=== PATIENT | female | born 1980 | race Caucasian/White ===

== ENCOUNTER → 2018-05-28 | Outpatient (CLI) | payer SELFPAY ==
[2018-05-28 12:33] LABS: BASOPHILS % (AUTO) 0 % (0-10); EOSINOPHILS # (AUTO) 0.2 10^3/uL (0.0-0.3); EOSINOPHILS % (AUTO) 2 % (0-10); HEMATOCRIT 40 % (35-52); HEMOGLOBIN 13.8 G/DL (11.5-16.0); LYMPHOCYTES # (AUTO) 0.9 X 10^3 (1.0-4.0); LYMPHOCYTES % (AUTO) 10 % (12-44); MEAN CORPUSCULAR HEMOGLOBIN 31 PG (25-34); MEAN CORPUSCULAR HGB CONC 34 G/DL (32-36); MEAN CORPUSCULAR VOLUME 91 FL (80-99); MEAN PLATELET VOLUME 9.7 FL (7.4-10.4); MONOCYTES # (AUTO) 0.7 X 10^3 (0.0-1.0); MONOCYTES % (AUTO) 7 % (0-12); NEUTROPHILS # (AUTO) 7.8 X 10^3 (1.8-7.8); NEUTROPHILS % (AUTO) 81 % (42-75); PLATELET COUNT 304 10^3/uL (130-400); RED BLOOD COUNT 4.43 10^6/uL (4.35-5.85); RED CELL DISTRIBUTION WIDTH 12.3 % (10.0-14.5); WHITE BLOOD COUNT 9.7 10^3/uL (4.3-11.0)
[2018-05-28 12:53] LABS: ALANINE AMINOTRANSFERASE 20 U/L (0-55); ALBUMIN 4.4 GM/DL (3.2-4.5); ALKALINE PHOSPHATASE 66 U/L (40-136); BILIRUBIN,TOTAL 0.8 MG/DL (0.1-1.0); BUN/CREATININE RATIO 10; CARBON DIOXIDE 20 MMOL/L (21-32); CHLORIDE 104 MMOL/L (98-107); CREATININE SERUM 0.62 MG/DL (0.60-1.30); GFR ESTIMATED > 60; GLUCOSE 105 MG/DL (70-105); POTASSIUM 3.9 MMOL/L (3.6-5.0); SODIUM 134 MMOL/L (135-145); TOTAL PROTEIN 7.4 GM/DL (6.4-8.2)
== END ==
LOC: LAB 11:56
PROVIDERS: ATTEND Nurse Practitioner Family
DX: G44.209 Tension-type headache, unspecified, not intractable (principal); R50.9 Fever, unspecified; F41.1 Generalized anxiety disorder
CPT/HCPCS: 36415; 80053; 84443; 85025

== ENCOUNTER 2022-06-20 02:57 | Emergency (ER) | payer SELFPAY ==
[2022-06-20 03:25] VITALS: BP 98/81
--- NOTE | 2022-06-20 03:33 | ED General ---
General Chief Complaint: Allergic Reaction Stated Complaint: ALLERGIC RXN,HANDS &FEET SWOLLEN,PT STS PASSED OUT Nursing Triage Note: PT PRESENTS AND REPORTS SHE WOKE UP AROUND 0230 AND WAS ITCHING ALL OVER. HIVES PRESENT TO ARMS, LEGS, FEET, HANDS, BACK, AND TRUNK. PT REPORTS TONGUE FEELS LARGER THAN NORMAL. DENIES ISSUE SWALLOWING. PT REPORTS SHE WAS WALKING AND THEN WOKE UP ON THE FLOOR SO SHE BELIEVES SHE HAD LOC. PT REPORTS NAUSEA History of Present Illness Date Seen by Provider: Jun 20, 2022 Time Seen by Provider: 03:30 Initial Comments 41-year-old female is here with complaints of an allergic reaction which began around 2:30 AM today morning. Patient woke up itching all over and noticed that she had hives to her arms legs feet hands and trunk. Patient also complains of tingling and mild swelling in her tongue. She stated she went to the bathroom and became lightheaded and fell on the floor for a second to balance her self. Patient has associated nausea but no vomiting. Patient is unsure trigger for her allergic reaction. Denies fever, chest pain, palpitations, shortness of breath, abdominal pain. Allergies and Home Medications Allergies Coded Allergies: No Known Drug Allergies (Unverified , 06/20/22) Patient Home Medication List Home Medication List Reviewed: Yes Review of Systems Review of Systems Constitutional: no symptoms reported EENTM: no symptoms reported Respiratory: no symptoms reported Cardiovascular: no symptoms reported Gastrointestinal: nausea Genitourinary: no symptoms reported Musculoskeletal: no symptoms reported Skin: pruritus, rash Psychiatric/Neurological: No Symptoms Reported Hematologic/Lymphatic: No Symptoms Reported Immunological/Allergic: no symptoms reported Past Yyrggxa-Cxeskl-Rfyoeo Hx Patient Social History Tobacco Use?: No Substance use?: No Alcohol Use?: No Immunizations Up To Date Influenza Vaccine Up-to-Date: No; Not Current First/Initial COVID19 Vaccinat: UNKNOWN DATE Second COVID19 Vaccination Simeon: UNKNOWN DATE COVID19 Vaccine Stepdown Nurse: ROBERT Physical Exam Vital Signs Vital Signs - First Documented 06/20/22 03:25 Temp 35.8 Pulse 82 Resp 18 B/P (MAP) 98/81 (87) Pulse Ox 97 O2 Delivery Room Air Capillary Refill : Height, Weight, BMI Height: '" Weight: lbs. oz. kg; BMI Method: General Appearance: No Apparent Distress, WD/WN HEENT: PERRL/EOMI, Normal ENT Inspection, Pharynx Normal Neck: Full Range of Motion, Normal Inspection, Non Tender, Supple Respiratory: Chest Non Tender, Lungs Clear, Normal Breath Sounds Cardiovascular: Regular Rate, Rhythm Gastrointestinal: Non Tender, Soft Neurologic/Psychiatric: Alert, Oriented x3, No Motor/Sensory Deficits Skin: Normal Color, Rash (Hives on extremities and trunk) Lymphatic: No Adenopathy Progress/Results/Core Measures Suspected Sepsis SIRS Temperature: Pulse: 82 Respiratory Rate: 18 Blood Pressure 98 /81 Mean: 87 Results/Orders My Orders Orders - BRENDAN MATIAS MD Methylprednisolone Sod Succ (Solu-Medrol (06/20/22 03:57) Ns Iv 1000 Ml (Sodium Chloride 0.9%) (06/20/22 03:59) Ed Iv/Invasive Line Start (06/20/22 03:59) Famotidine Tablet (Pepcid Tablet) (06/20/22 03:59) Vital Signs/I&O 06/20/22 03:25 Temp 35.8 Pulse 82 Resp 18 B/P (MAP) 98/81 (87) Pulse Ox 97 O2 Delivery Room Air Capillary Refill : Blood Pressure Mean: 87 Progress Note : Progress Note 1. ALLERGIC REACTION : UNKNOWN TRIGGER: - Solumedrol 125mg iv/ Pepcid/ Benadryl/ NS IVF in ER - Prescriotions for dual pack EpiPen/prednisone for 4 days -Follow-up with PCP within 3 to 5 days -Advised patient to see PCP for dermatology referral for skin allergy testing -The patient was seen in the ED, and treated appropriately to presentation at a specific point in time. Patient is informed that there is a possibility that disease and illness can evolve and change in acuity rapidly or slowly after patient is discharged from the ER. Precautionary advice given to the patient for immediate return to ER if symptoms worsen or do not resolve, and to seek emergency care sooner rather than later. Pt also advised on the importance of PCP follow up and compliance with management and follow up plan with PCP and/or specialist, as this is part of the management plan. Pt verbally expressed understanding. Departure Impression Primary Impression: Allergic reaction Qualified Codes: T78.40XA - Allergy, unspecified, initial encounter Disposition: 01 HOME, SELF-CARE Condition: Improved Departure-Patient Inst. Referrals: HIRO XAVIER APRN (PCP/Family) Primary Care Physician Patient Instructions: Allergy Skin Testing, Allergic Reaction ED Add. Discharge Instructions: - Prescriotions for dual pack EpiPen/prednisone for 4 days -Follow-up with PCP within 3 to 5 days -Return to ER if symptoms worsen -Advised patient to see PCP for dermatology referral for skin allergy testing All discharge instructions reviewed with patient and/or family. Voiced understanding. Scripts Prednisone (Prednisone) 20 Mg Tab 40 MG PO DAILY for 4 Days, #4 TAB Prov: BRENDAN MATIAS MD 06/20/22 Epinephrine (Epipen 2-Wilman) 0.3 Mg/0.3 Ml Auto.injct 0.3 MG IJ ONCE for Shortness of Breath, #1 ML Prov: BRENDAN MATIAS MD 06/20/22 BRENDAN MATIAS MD Jun 20, 2022 03:33
[2022-06-20] MEDS ORDERED: methylPREDNISolone 125 MG (Solu-MEDROL) VIAL IV STA (03:57)
[2022-06-20] MEDS ORDERED: NS IV 1000 ML 1,000 ML IV STA (03:59)
[2022-06-20] MEDS ORDERED: FAMOTIDINE 20 MG (PEPCID) TABLET PO STA (03:59)
[2022-06-20] MEDS ORDERED: EPIN0.3P3 IJ (06:01)
[2022-06-20] MEDS ORDERED: PRD20T PO (06:01)
== END 2022-06-20 06:23 | disposition home or self-care (01) ==
LOC: EDUNIT# 02:57 → ER 03:00
DX: L50.0 Allergic urticaria (principal); R11.0 Nausea
CPT/HCPCS: 99283

== ENCOUNTER 2022-06-28 22:10 | Emergency (ER) | payer SELFPAY ==
[~2022-06-28] VITALS: Ht 162.6 cm; Wt 93.4 kg
[~2022-06-28 22:10] MED LIST: EPIN0.3P3 IJ; PRD20T PO
[2022-06-28] MEDS ORDERED: methylPREDNISolone 125 MG (Solu-MEDROL) VIAL IVP ONE (22:30)
[2022-06-28] MEDS ORDERED: FAMOTIDINE 20MG/2ML IV (PEPCID) IVP ONE (22:30)
[2022-06-29] MEDS ORDERED: ONDANSETRON 4 MG/2 ML (SDV) Z0FRAN IVP ONE
[2022-06-29] MEDS ORDERED: PRD20T PO (02:02)
[2022-06-29] MEDS ORDERED: EPIN0.3P3 IJ (02:02)
[2022-06-29] MEDS ORDERED: FAMO-119 PO (02:02)
[2022-06-29] MEDS ORDERED: ACHD5005 PO (02:02)
--- NOTE | 2022-06-29 02:05 | ED General ---
General Chief Complaint: Allergic Reaction Stated Complaint: ALLERGIC REACTIONS Nursing Triage Note: PT TO ED BY EMS WITH C/O ALLERGIC REACTION. PT REPORTS APPROX 50 MIN [employer] SHE BEGAN ITCHING AND COUGHING. APPROX 30 MIN [employer] PT GAVE HERSELF AN EPI PEN AND 50 MG BENADRYL. PT REPORTS SHE FEELS LIKE THE SWELLING IN HER TONGUE HAS DECREASED, STILL FEELS LIKE HER "SKIN IS CRAWLING" AND HAS HIVES. PT IS TAKING TRAMADOL AND CLINDAMYCIN, PREVIOUSLY ON AMOXICILLIN FOR A BROKEN TOOTH. PT HAD AN ALLERGIC REACTION EARLIER THIS WEEK AND SWITCHED FROM AMOXICILLIN TO CLINDAMYCIN. DENIES DIFFICULTY BREATHING AT THIS TIME. Source of Information: Patient, EMS Exam Limitations: No Limitations History of Present Illness Date Seen by Provider: Jun 28, 2022 Time Seen by Provider: 22:20 Initial Comments This 41-year-old woman presents to the emergency room via EMS with allergic reaction after taking Ultram and clindamycin for a dental decay. She reports a prior similar reaction when she took amoxicillin and Ultram. The allergy at that time was presumed to be related to amoxicillin. She has not had problems with clindamycin in the past. She developed symptoms of itchy hands, followed by itching on the flanks, followed by rash and tongue swelling. She then developed lightheadedness and an urge to cough. This occurred approximately 30 minutes after taking her medications. She used her EpiPen and Benadryl 50 mg. She took those medications about 50 minutes prior to arrival. Symptoms are starting to improve. Allergies and Home Medications Allergies Coded Allergies: amoxicillin (Verified Allergy, Severe, ANAPHYLAXIS, 06/28/22) clindamycin (Verified Allergy, Severe, ANAPHYLAXIS, 06/28/22) tramadol (Verified Allergy, Severe, ANAPHYLAXIS, 06/28/22) Sulfa (Sulfonamide Antibiotics) (Verified Allergy, Intermediate, RASH, 06/28/22) Patient Home Medication List Home Medication List Reviewed: Yes Epinephrine (Epipen 2-Wilman) 0.3 Mg/0.3 Ml Auto.injct, 0.3 MG IJ ONCE Prescribed by: BRENDAN MATIAS MD on 06/20/22 0601 Epinephrine (Epipen 2-Wilman) 0.3 Mg/0.3 Ml Auto.injct, 0.3 MG IJ UD Prescribed by: ENA BIGGS on 06/29/22 0202 Famotidine (Pepcid) 20 Mg Tablet, 20 MG PO BID Prescribed by: ENA BIGGS on 06/29/22 0202 Hydrocodone/Acetaminophen (Hydrocodone-Acetamin 5-325 mg) 5 Mg-325 Mg Tablet, 1 TAB PO Q4H PRN for PAIN-BREAKTHROUGH Prescribed by: ENA BIGGS on 06/29/22 0203 Prednisone (Prednisone) 20 Mg Tab, 40 MG PO DAILY Prescribed by: BRENDAN MATIAS MD on 06/20/22 0601 Prednisone (Prednisone) 20 Mg Tab, 20 MG PO BID Prescribed by: ENA BIGGS on 06/29/22 020 Review of Systems Review of Systems Constitutional: no symptoms reported EENTM: see HPI Respiratory: see HPI Cardiovascular: see HPI Gastrointestinal: no symptoms reported Genitourinary: no symptoms reported : No Musculoskeletal: no symptoms reported Skin: see HPI Psychiatric/Neurological: See HPI Hematologic/Lymphatic: No Symptoms Reported Immunological/Allergic: see HPI Past Dlwuxqn-Whkwdp-Fetztm Hx Patient Social History Tobacco Use?: No Use of E-Cig and/or Vaping dev: No Substance use?: No Alcohol Use?: No Pt feels they are or have been: No Immunizations Up To Date Influenza Vaccine Up-to-Date: No; Not Current First/Initial COVID19 Vaccinat: UNKNOWN DATE Second COVID19 Vaccination Simeon: UNKNOWN DATE Past Medical History Surgeries: Yes Section Respiratory: No Cardiac: No Neurological: No : No Reproductive Disorders: No Genitourinary: No Gastrointestinal: No Musculoskeletal: No Endocrine: No HEENT: No Cancer: No Psychosocial: No Integumentary: No Physical Exam Vital Signs Vital Signs - First Documented 06/28/22 22:16 Temp 35.8 Pulse 88 Resp 20 B/P (MAP) 110/79 (89) Pulse Ox 94 O2 Delivery Room Air Capillary Refill : Height, Weight, BMI Height: '" Weight: lbs. oz. kg; 35.00 BMI Method: General Appearance: No Apparent Distress, WD/WN HEENT: PERRL/EOMI, TMs Normal, Normal ENT Inspection, Pharynx Normal Neck: Normal Inspection Respiratory: Lungs Clear, Normal Breath Sounds, No Accessory Muscle Use Cardiovascular: Regular Rate, Rhythm, No Edema, No Murmur Gastrointestinal: Non Tender, Soft Extremity: Normal Inspection, No Pedal Edema Neurologic/Psychiatric: Alert, Oriented x3, No Motor/Sensory Deficits, Normal Mood/Affect Skin: Warm/Dry, Rash (Subtle erythematous rash noted on face and extremities) Progress/Results/Core Measures Suspected Sepsis SIRS Temperature: Pulse: 88 Respiratory Rate: 20 Blood Pressure 110 /79 Mean: 89 Results/Orders My Orders Orders - ENA ANDRADE MD Methylprednisolone Sod Succ (Solu-Medrol (06/28/22 22:30) Famotidine Injection (Pepcid Injection) (06/28/22 22:30) Hydrocodone/Apap 5/325 Tablet (Lortab 5 (06/29/22 02:30) Medications Given in ED Current Medications Medications Dose Ordered Sig/Liv Route Start Time Stop Time Status Last Admin Dose Admin Acetaminophen/ Hydrocodone Bitart 1 ea ONCE ONCE PO 06/29/22 02:30 06/29/22 02:31 DC 06/29/22 02:34 1 EA Famotidine 20 mg ONCE ONCE IVP 06/28/22 22:30 06/28/22 22:31 DC 06/28/22 22:27 20 MG Methylprednisolone Sodium Succinate 125 mg ONCE ONCE IVP 06/28/22 22:30 06/28/22 22:31 DC 06/28/22 22:26 125 MG Ondansetron HCl 4 mg ONCE ONCE IVP 06/29/22 00:00 06/29/22 00:01 DC 06/28/22 23:58 4 MG Vital Signs/I&O 06/28/22 06/29/22 22:16 02:17 Temp 35.8 36.2 Pulse 88 84 Resp 20 16 B/P (MAP) 110/79 (89) 120/78 Pulse Ox 94 96 O2 Delivery Room Air Room Air Capillary Refill : Blood Pressure Mean: 89 Progress Note : Progress Note Patient was additionally treated with Solu-Medrol and Pepcid. She was monitored for about 4 hours. Symptoms had primarily resolved and she was discharged with precautions. Dental pain was treated with hydrocodone prior to discharge. She was instructed to discontinue tramadol. Hydrocodone was prescribed as an alternative. Departure Impression Primary Impression: Allergic reaction caused by a drug Qualified Codes: T78.40XA - Allergy, unspecified, initial encounter Additional Impression: Pain, dental Disposition: HOME, SELF-CARE Condition: Improved Departure-Patient Inst. Decision time for Depature: 02:00 Referrals: HIRO XAVIER APRN (PCP/Family) Primary Care Physician Patient Instructions: Anaphylaxis Add. Discharge Instructions: At future healthcare encounters list sulfa, amoxicillin, Ultram (tramadol), and clindamycin (Cleocin) as allergies. Keep Benadryl on hand for the next few days. Take 50 mg Benadryl (diphenhydramine) every 4 hours as needed for rebound allergic symptoms. If symptoms are severe or include shortness of breath, throat swelling, tongue or lip swelling, or other severe symptoms, take your EpiPen and immediately present to the emergency room or call 911. Use prednisone and Pepcid for the next few days as prescribed. For dental pain you may take ibuprofen up to 600 mg every 6 hours as needed. Add hydrocodone for pain not controlled by ibuprofen. Do not take any further Ultram (tramadol). All discharge instructions reviewed with patient and/or family. Voiced understanding. Scripts Hydrocodone/Acetaminophen (Hydrocodone-Acetamin 5-325 mg) 5 Mg-325 Mg Tablet 1 TAB PO Q4H PRN for PAIN-BREAKTHROUGH, #20 TAB Prov: ENA ANDRADE MD 06/29/22 Prednisone (Prednisone) 20 Mg Tab 20 MG PO BID, #3 TAB 0 Refills Prov: ENA ANDRADE MD 06/29/22 Famotidine (Pepcid) 20 Mg Tablet 20 MG PO BID, #10 TAB Prov: ENA ANDRADE MD 06/29/22 Epinephrine (Epipen 2-Wilman) 0.3 Mg/0.3 Ml Auto.injct 0.3 MG IJ UD, #1 ML Prov: ENA ANDRADE MD 06/29/22 ENA ANDRADE MD Jun 29, 2022 02:05
[2022-06-29 02:17] VITALS: BP 120/78
[2022-06-29] MEDS ORDERED: HYDROcodone/APAP 5 MG/325 MG (LORTAB) TAB PO ONE (02:30)
== END 2022-06-29 02:38 | disposition home or self-care (01) ==
LOC: EDUNIT# 22:10 → ER 22:11
DX: T40.421A Poisoning by tramadol, accidental (unintentional), initial encounter (principal); T36.8X1A Poisoning by other systemic antibiotics, accidental (unintentional), initial encounter; K08.89 Other specified disorders of teeth and supporting structures
CPT/HCPCS: 99283

== ENCOUNTER 2022-08-13 01:38 | Emergency (ER) | payer SELFPAY ==
[~2022-08-13] VITALS: Ht 162.6 cm; Wt 94.8 kg
[~2022-08-13 01:38] MED LIST changes: +ACHD5005 PO; +FAMO-119 PO
--- NOTE | 2022-08-13 01:54 | ED General ---
General Stated Complaint: ALLERGIC REACTION SWOLLEN TONGUE/ITCHING Source of Information: Patient Exam Limitations: No Limitations History of Present Illness Date Seen by Provider: Aug 13, 2022 Time Seen by Provider: 01:41 Initial Comments 41-year-old female presents emergency department today for allergic reaction. She noticed this evening around 10 PM when her son came into her room. She developed a rash about her arms and itching in her hands. She felt like her lips were tingling in her tongue might be swelling just a little bit. She is only started to have the symptoms over the last several months. She has had to use her EpiPen once in the recent past but did not use it this evening. She did take 2 Benadryl prior to arrival. No abdominal pain nausea vomiting. No current difficulty breathing or shortness of breath. No palpitations. Allergies and Home Medications Allergies Coded Allergies: amoxicillin (Verified Allergy, Severe, ANAPHYLAXIS, 06/28/22) clindamycin (Verified Allergy, Severe, ANAPHYLAXIS, 06/28/22) tramadol (Verified Allergy, Severe, ANAPHYLAXIS, 06/28/22) Sulfa (Sulfonamide Antibiotics) (Verified Allergy, Intermediate, RASH, 06/28/22) Patient Home Medication List Home Medication List Reviewed: Yes Epinephrine (Epipen 2-Wilman) 0.3 Mg/0.3 Ml Auto.injct, 0.3 MG IJ ONCE Prescribed by: BRENDAN MATIAS MD on 06/20/22600 Epinephrine (Epipen 2-Wilman) 0.3 Mg/0.3 Ml Auto.injct, 0.3 MG IJ UD Prescribed by: ENA BIGGS on 06/29/22201 Famotidine (Pepcid) 20 Mg Tablet, 20 MG PO BID Prescribed by: ENA BIGGS on 06/29/22201 Hydrocodone/Acetaminophen (Hydrocodone-Acetamin 5-325 mg) 5 Mg-325 Mg Tablet, 1 TAB PO Q4H PRN for PAIN-BREAKTHROUGH Prescribed by: ENA BIGGS on 06/29/22202 Prednisone (Prednisone) 20 Mg Tab, 40 MG PO DAILY Prescribed by: BRENDAN MATIAS MD on 06/20/22600 Prednisone (Prednisone) 20 Mg Tab, 20 MG PO BID Prescribed by: ENA BIGGS on 9/8/22 0202 Review of Systems Review of Systems Constitutional: no symptoms reported EENTM: no symptoms reported Respiratory: no symptoms reported Cardiovascular: no symptoms reported Gastrointestinal: no symptoms reported Genitourinary: no symptoms reported Musculoskeletal: no symptoms reported Skin: rash, other (Itching) Psychiatric/Neurological: No Symptoms Reported Hematologic/Lymphatic: No Symptoms Reported Immunological/Allergic: no symptoms reported Past Twgqjsf-Jejkyj-Xniwej Hx Patient Social History Tobacco Use?: No Use of E-Cig and/or Vaping dev: No Substance use?: No Alcohol Use?: No Immunizations Up To Date First/Initial COVID19 Vaccinat: UNKNOWN DATE Second COVID19 Vaccination Simeon: UNKNOWN DATE Past Medical History Surgeries: Yes Section Respiratory: No Cardiac: No Neurological: No Reproductive Disorders: No Genitourinary: No Gastrointestinal: No Musculoskeletal: No Endocrine: No HEENT: No Cancer: No Psychosocial: No Integumentary: No Family Medical History Reviewed Nursing Family Hx No Pertinent Family Hx Physical Exam Vital Signs Vital Signs - First Documented 08/13/22 01:39 Temp 36.9 Pulse 86 Resp 24 B/P (MAP) 141/98 (112) Pulse Ox 97 Capillary Refill : Height, Weight, BMI Height: '" Weight: lbs. oz. kg; 35.00 BMI Method: General Appearance: No Apparent Distress, WD/WN HEENT: PERRL/EOMI, TMs Normal, Normal ENT Inspection, Pharynx Normal Neck: Full Range of Motion, Normal Inspection, Non Tender, Supple Respiratory: Chest Non Tender, Lungs Clear, Normal Breath Sounds, No Accessory Muscle Use, No Respiratory Distress Cardiovascular: Regular Rate, Rhythm, No Edema, No Gallop, No JVD, No Murmur, Normal Peripheral Pulses Gastrointestinal: Normal Bowel Sounds, No Organomegaly, No Pulsatile Mass, Non Tender, Soft Back: Normal Inspection, No CVA Tenderness, No Vertebral Tenderness Extremity: Normal Capillary Refill, Normal Inspection, Normal Range of Motion, Non Tender, No Calf Tenderness Neurologic/Psychiatric: Alert, Oriented x3, No Motor/Sensory Deficits Skin: Other (Patient has hives bilateral arms) Lymphatic: No Adenopathy Progress/Results/Core Measures Suspected Sepsis SIRS Temperature: Pulse: Respiratory Rate: Blood Pressure / Mean: Results/Orders My Orders Orders - ELIESER HOSKINS DO Diphenhydramine Injection (Benadryl Inje (08/13/22 02:00) Methylprednisolone Sod Succ (Solu-Medrol (08/13/22 02:00) Famotidine Tablet (Pepcid Tablet) (08/13/22 02:00) Medications Given in ED Current Medications Medications Dose Ordered Sig/Liv Route Start Time Stop Time Status Last Admin Dose Admin Diphenhydramine HCl 50 mg ONCE ONCE IVP 08/13/22 02:00 08/13/22 02:01 DC 08/13/22 02:08 50 MG Famotidine 20 mg ONCE ONCE PO 08/13/22 02:00 08/13/22 02:01 DC 08/13/22 02:07 20 MG Methylprednisolone Sodium Succinate 125 mg ONCE ONCE IVP 08/13/22 02:00 08/13/22 02:01 DC 08/13/22 02:08 125 MG Vital Signs/I&O 08/13/22 01:39 Temp 36.9 Pulse 86 Resp 24 B/P (MAP) 141/98 (112) Pulse Ox 97 Capillary Refill : Departure Communication (Admissions) Patient is hemodynamically stable. Symptoms improved with the provided therapies. She never had any swelling, not significant enough to require ep inephrine. Discharged in stable condition with recommended Benadryl and p.o. steroids. Impression Primary Impression: Allergic reaction Qualified Codes: T78.40XA - Allergy, unspecified, initial encounter Disposition: HOME, SELF-CARE Condition: Stable Departure-Patient Inst. Referrals: HIRO XAVIER APRN (PCP/Family) Primary Care Physician Patient Instructions: Skin Rash (DC) Scripts Prednisone (Prednisone) 50 Mg Tab 50 MG PO DAILY for 3 Days, #3 TAB Prov: ELIESER HOSKINS DO 08/13/22 ELIESER HOSKINS DO Aug 13, 2022 01:54
[2022-08-13] MEDS ORDERED: FAMOTIDINE 20 MG (PEPCID) TABLET PO ONE (02:00)
[2022-08-13] MEDS ORDERED: diphenhydrAMINE 50 MG/ML INJ (BENADRYL) IVP ONE (02:00)
[2022-08-13] MEDS ORDERED: methylPREDNISolone 125 MG (Solu-MEDROL) VIAL IVP ONE (02:00)
[2022-08-13] MEDS ORDERED: PRD50T PO (03:18)
[2022-08-13 03:41] VITALS: BP 141/98
== END 2022-08-13 03:40 | disposition home or self-care (01) ==
LOC: EDUNIT# 01:38 → ER 01:40
DX: L50.0 Allergic urticaria (principal); Z28.310 Unvaccinated for COVID-19

== ENCOUNTER 2023-09-20 05:33 | Emergency (ER) | payer SELFPAY ==
[~2023-09-20] VITALS: Ht 162 cm; Wt 99.4 kg
[~2023-09-20 05:33] MED LIST changes: +PRD50T PO
[2023-09-20] MEDS ORDERED: ALBU2.5V4 (06:03)
[2023-09-20] MEDS ORDERED: ONDANSETRON INJECTION 4 MG/2 ML (SDV) IVP ONE (06:15)
[2023-09-20] MEDS ORDERED: LACTATED RINGERS 1,000 ML 1,000 ML IV ONE (06:15)
[2023-09-20 06:30] LABS: BASOPHILS # (AUTO) 0.1 10^3/uL (0.0-0.1); BASOPHILS % (AUTO) 0 % (0-10); EOSINOPHILS # (AUTO) 0.1 10^3/uL (0.0-0.3); EOSINOPHILS % (AUTO) 0 % (0-10); HEMATOCRIT 43 % (35-52); HEMOGLOBIN 14.5 g/dL (11.5-16.0); LYMPHOCYTES # (AUTO) 2.7 10^3/uL (1.0-4.0); LYMPHOCYTES % (AUTO) 12 % (12-44); MEAN CORPUSCULAR HEMOGLOBIN 31 pg (25-34); MEAN CORPUSCULAR HGB CONC 34 g/dL (32-36); MEAN CORPUSCULAR VOLUME 93 fL (80-99); MEAN PLATELET VOLUME 10.1 fL (9.0-12.2); MONOCYTES # (AUTO) 1.4 10^3/uL (0.0-1.0); MONOCYTES % (AUTO) 6 % (0-12); NEUTROPHILS # (AUTO) 17.5 10^3/uL (1.8-7.8); NEUTROPHILS % (AUTO) 80 % (42-75); PLATELET COUNT 358 10^3/uL (130-400)
[2023-09-20] MEDS ORDERED: PANTOPRAZOLE INJECTION 40 MG VIAL IV ONE (06:30)
[2023-09-20 06:31] LABS: CLARITY,URINE SL CLOUDY; COLOR,URINE YELLOW; GLUCOSE, URINE (UA) NEGATIVE (NEGATIVE); PROTEIN,URINE 2+ (NEGATIVE)
[2023-09-20 06:32] LABS: BACTERIA,URINE NEGATIVE /HPF; BILIRUBIN,URINE NEGATIVE (NEGATIVE); KETONES,URINE NEGATIVE (NEGATIVE); LEUKOCYTE ESTERASE ,URINE NEGATIVE (NEGATIVE); NITRITE,URINE NEGATIVE (NEGATIVE)
--- NOTE | 2023-09-20 06:33 | ED Abdominal Pain ---
General Chief Complaint: Abdominal/GI Problems Stated Complaint: UPPER ABD PAIN/VOMITING Nursing Triage Note: c/o stabbing upper abdominal pain, vomitting since 09/19/23 Source of Information: Patient Exam Limitations: No Limitations History of Present Illness Date Seen by Provider: Sep 20, 2023 Time Seen by Provider: 06:04 Initial Comments Kasandra is a 42-year-old woman who presents to the emergency room with epigastric and left upper quadrant pain of a stabbing nature with associated vomiting that started at approximately 1300 yesterday. She has tried using a heating pad and Pepto-Bismol without benefit. She had some loose stools yesterday and some constipation prior to that. She has not had any diarrhea. She denies fever. About 1 week ago she took Augmentin and a steroid for a respiratory syndrome. She also had a vitamin B12 injection on Sunday. She reports pain with movement and some intermittent cramping. She denies . Her primary care provider is Dulce Mariano. Allergies and Home Medications Allergies Coded Allergies: amoxicillin (Verified Allergy, Severe, ANAPHYLAXIS, 06/28/22) clindamycin (Verified Allergy, Severe, ANAPHYLAXIS, 06/28/22) tramadol (Verified Allergy, Severe, ANAPHYLAXIS, 06/28/22) Sulfa (Sulfonamide Antibiotics) (Verified Allergy, Intermediate, RASH, 06/28/22) Uncoded Allergies: alph-gal syndrome (Allergy, Unknown, Alpha-gal syndrome allergy to mammalian meat, 09/20/23) Patient Home Medication List Home Medication List Reviewed: Yes Albuterol Sulfate (Albuterol Sulfate) 2.5 Mg/3 Ml (0.083 %) Vial.neb, (Reported) Entered as Reported by: MADY EPPS on 09/20/23 06 Last Action: New Order Epinephrine (Epipen 2-Wilman) 0.3 Mg/0.3 Ml Auto.injct, 0.3 MG IJ ONCE Prescribed by: BRENDAN MATIAS MD on 06/20/22 06 Famotidine (Pepcid) 20 Mg Tablet, 20 MG PO BID Prescribed by: ENA BIGGS on 06/29/22 0202 Hyoscyamine Sulfate (Levsin-Sl) 0.125 Mg Tab.subl, 1-2 TAB SL Q4H PRN for CRAMPS Prescribed by: ENA BIGGS on 09/20/23907 Lisinopril/Hydrochlorothiazide (Lisinopril-Hctz 10-12.5 mg Tab) 10 Mg-12.5 Mg Tablet, 1 EACH PO DAILY Prescribed by: ENA BIGGS on 09/20/23907 Ondansetron (Ondansetron Odt) 4 Mg Tab.rapdis, 4 MG SL Q4H PRN for NAUSEA/VOMITING Prescribed by: ENA BIGGS on 09/20/23 09 Discontinued Medications Epinephrine (Epipen 2-Wilman) 0.3 Mg/0.3 Ml Auto.injct, 0.3 MG IJ UD Discontinued Reason: No Longer Taking Prescribed by: ENA BIGGS on 06/29/22201 Last Action: Discontinued Hydrocodone/Acetaminophen (Hydrocodone-Acetamin 5-325 mg) 5 Mg-325 Mg Tablet, 1 TAB PO Q4H PRN for PAIN-BREAKTHROUGH Discontinued Reason: No Longer Taking Prescribed by: ENA BIGGS on 06/29/22202 Last Action: Discontinued Prednisone (Prednisone) 20 Mg Tab, 40 MG PO DAILY Discontinued Reason: No Longer Taking Prescribed by: BRENDAN MATIAS MD on 06/20/22 06 Last Action: Discontinued Prednisone (Prednisone) 20 Mg Tab, 20 MG PO BID Discontinued Reason: No Longer Taking Prescribed by: ENA BIGGS on 06/29/22201 Last Action: Discontinued Prednisone (Prednisone) 50 Mg Tab, 50 MG PO DAILY Discontinued Reason: No Longer Taking Prescribed by: ELIESER HOSKINS MD on 08/13/22317 Last Action: Discontinued Review of Systems Review of Systems Constitutional: no symptoms reported EENTM: No Symptoms Reported Respiratory: See HPI, Cough Cardiovascular: No Symptoms Reported Gastrointestinal: See HPI Genitourinary: No Symptoms Reported Musculoskeletal: no symptoms reported Skin: no symptoms reported Psychiatric/Neurological: No Symptoms Reported Endocrine: No Symptoms Reported Hematologic/Lymphatic: No Symptoms Reported Past Psyngal-Cdjogm-Vdkzlx Hx Patient Social History Tobacco Use?: No Substance use?: No Alcohol Use?: No Pt feels they are or have been: No Immunizations Up To Date First/Initial COVID19 Vaccinat: UNKNOWN DATE Second COVID19 Vaccination Simeon: UNKNOWN DATE Third COVID19 Vaccination Date: UNKNOWN DATE Past Medical History Surgery/Hospitalization HX: cholecystectomy, basal cell ca Surgeries: Yes (Basal cell carcinoma resected from the forehead) Section, Gallbladder, Orthopedic (Foot) Respiratory: No Cardiac: No Neurological: No Last Menstrual Period: Aug 21, 2023 Reproductive Disorders: No Genitourinary: No Gastrointestinal: No Musculoskeletal: No Endocrine: No HEENT: No Cancer: No Psychosocial: No Integumentary: No Blood Disorders: Yes (Alpha-gal syndrome) Family Medical History No Pertinent Family Hx Physical Exam Vital Signs Vital Signs - First Documented 09/20/23 05:51 Temp 36.9 Pulse 85 Resp 18 B/P (MAP) 161/110 (127) Pulse Ox 97 O2 Delivery Room Air Capillary Refill : Less Than 3 Seconds Height/Weight/BMI Height: '" Weight: lbs. oz. kg; 37.00 BMI Method: General Appearance: WD/WN, mild distress, obese HEENT: PERRL/EOMI, normal ENT inspection Neck: normal inspection Respiratory: lungs clear, normal breath sounds, no respiratory distress, no accessory muscle use Cardiovascular: regular rate, rhythm, no edema, no murmur Gastrointestinal: normal bowel sounds, soft; No distended; tenderness (Mild in the epigastrium and left upper quadrant) Extremities: normal inspection, no pedal edema Neurologic/Psychiatric: no motor/sensory deficits, alert, normal mood/affect, oriented x 3 Skin: normal color, warm/dry Progress/Results/Core Measures Results/Orders Lab Results Laboratory Tests Test 09/20/23 06:08 09/20/23 06:12 Range/Units Urine Color YELLOW Urine Clarity SL CLOUDY Urine pH 6.0 5-9 Urine Specific [place] >=1.030 1.016-1.022 Urine Protein 2+ H NEGATIVE Urine Glucose (UA) NEGATIVE NEGATIVE Urine Ketones NEGATIVE NEGATIVE Urine Nitrite NEGATIVE NEGATIVE Urine Bilirubin NEGATIVE NEGATIVE Urine Urobilinogen 1.0 < = 1.0 MG/DL Urine Leukocyte Esterase NEGATIVE NEGATIVE Urine RBC (Auto) NEGATIVE NEGATIVE Urine RBC 10-25 H /HPF Urine WBC NONE /HPF Urine Squamous Epithelial Cells 2-5 /HPF Urine Crystals NONE /LPF Urine Bacteria NEGATIVE /HPF Urine Casts NONE /LPF Urine Mucus SMALL H /LPF Urine Culture Indicated NO White Blood Count 22.0 H 4.3-11.0 10^3/uL Red Blood Count 4.64 3.80-5.11 10^6/uL Hemoglobin 14.5 11.5-16.0 g/dL Hematocrit 43 35-52 % Mean Corpuscular Volume 93 80-99 fL Mean Corpuscular Hemoglobin 31 25-34 pg Mean Corpuscular Hemoglobin Concent 34 32-36 g/dL Red Cell Distribution Width 11.8 10.0-14.5 % Platelet Count 358 130-400 10^3/uL Mean Platelet Volume 10.1 9.0-12.2 fL Immature Granulocyte % (Auto) 1 % Neutrophils (%) (Auto) 80 H 42-75 % Lymphocytes (%) (Auto) 12 12-44 % Monocytes (%) (Auto) 6 0-12 % Eosinophils (%) (Auto) 0 0-10 % Basophils (%) (Auto) 0 0-10 % Neutrophils # (Auto) 17.5 H 1.8-7.8 10^3/uL Lymphocytes # (Auto) 2.7 1.0-4.0 10^3/uL Monocytes # (Auto) 1.4 H 0.0-1.0 10^3/uL Eosinophils # (Auto) 0.1 0.0-0.3 10^3/uL Basophils # (Auto) 0.1 0.0-0.1 10^3/uL Immature Granulocyte # (Auto) 0.3 H 0.0-0.1 10^3/uL Neutrophils % (Manual) 75 % Lymphocytes % (Manual) 17 % Monocytes % (Manual) 8 % Platelet Estimate ADEQUATE Blood Morphology Comment NORMAL Sodium Level 135 135-145 MMOL/L Potassium Level 3.5 L 3.6-5.0 MMOL/L Chloride Level 100 98-107 MMOL/L Carbon Dioxide Level 25 21-32 MMOL/L Anion Gap 10 5-14 MMOL/L Blood Urea Nitrogen 9 7-18 MG/DL Creatinine 0.68 0.60-1.30 MG/DL Estimat Glomerular Filtration Rate 111 BUN/Creatinine Ratio 13 Glucose Level 212 H 70-105 MG/DL Calcium Level 8.7 8.5-10.1 MG/DL Corrected Calcium 8.5 8.5-10.1 MG/DL Magnesium Level 1.8 1.6-2.4 MG/DL Total Bilirubin 0.9 0.1-1.0 MG/DL Aspartate Amino Transf (AST/SGOT) 18 5-34 U/L Alanine Aminotransferase (ALT/SGPT) 40 0-55 U/L Alkaline Phosphatase 67 40-136 U/L C-Reactive Protein High Sensitivity 1.32 H 0.00-0.50 MG/DL Total Protein 7.7 6.4-8.2 GM/DL Albumin 4.3 3.2-4.5 GM/DL Lipase 47 8-78 U/L Serum Test, Qualitative NEGATIVE NEGATIVE My Orders Orders - ENA ANDRADE MD Cbc And Automated Diff (09/20/23 06:04) Comprehensive Metabolic Panel (09/20/23 06:04) Lipase (09/20/23 06:04) Magnesium (09/20/23 06:04) Ua Culture If Indicated (09/20/23 06:04) Ed Iv/Invasive Line Start (09/20/23 06:04) Lactated Ringers 1,000 Ml (Lactated Ring (09/20/23 06:15) Ondansetron Injection (Ondansetron Inj (09/20/23 06:15) Hcg,Qualitative Serum (09/20/23 06:04) Pantoprazole Injection (Pantoprazole Inj (09/20/23 06:30) Manual Differential (09/20/23 06:12) Hs C Reactive Protein (09/20/23 06:36) Fentanyl Injection (Fentanyl Injection (09/20/23 06:45) Lidocaine 2% Viscous 15 Ml (Xylocaine Vi (09/20/23 07:15) Antacid Suspension (Antacid Suspension (09/20/23 07:15) Chest Pa/Lat (2 View) (09/20/23 08:00) Abdomen, Flat & Upright/Decub (09/20/23 08:00) Fentanyl Injection (Fentanyl Injection (09/20/23 08:15) Ketorolac Injection (Ketorolac Injection (09/20/23 09:00) Hyoscyamine Tablet (Hyoscyamine Tablet) (09/20/23 09:00) Medications Given in ED Current Medications Medications Dose Ordered Sig/Liv Route Start Time Stop Time Status Last Admin Dose Admin Al Hydrox/Mg Hydrox/Simethicone 30 ml ONCE ONCE PO 09/20/23 07:15 09/20/23 07:16 DC 09/20/23 07:18 30 ML Fentanyl Citrate 50 mcg ONCE ONCE IVP 09/20/23 06:45 09/20/23 06:46 DC 09/20/23 06:51 50 MCG Fentanyl Citrate 50 mcg ONCE ONCE IVP 09/20/23 08:15 09/20/23 08:16 DC 09/20/23 08:20 50 MCG Hyoscyamine Sulfate 0.25 mg ONCE ONCE SL 09/20/23 09:00 09/20/23 09:01 DC 09/20/23 09:07 0.25 MG Ketorolac Tromethamine 15 mg ONCE ONCE IVP 09/20/23 09:00 09/20/23 09:01 DC 09/20/23 09:07 15 MG Lactated Ringer's 1,000 ml @ 0 mls/hr Q0M ONCE IV 09/20/23 06:15 09/20/23 06:16 DC 09/20/23 06:16 0 MLS/HR Lidocaine HCl 15 ml ONCE ONCE PO 09/20/23 07:15 09/20/23 07:16 DC 09/20/23 07:18 15 ML Ondansetron HCl 8 mg ONCE ONCE IVP 09/20/23 06:15 09/20/23 06:16 DC 09/20/23 06:16 8 MG Pantoprazole 40 mg ONCE ONCE IV 09/20/23 06:30 09/20/23 06:31 DC 09/20/23 06:32 40 MG Vital Signs/I&O 09/20/23 09/20/23 05:51 06:51 Temp 36.9 36.9 Pulse 85 Resp 18 B/P (MAP) 161/110 (127) Pulse Ox 97 O2 Delivery Room Air Blood Pressure Mean: 127 Progress Progress Note #1: Time: 06:28 Progress Note Kasandra was interviewed and examined promptly upon starting my shift. Zofran 8 mg IV was ordered for nausea. Protonix was ordered for upper abdominal pain. Labs have been ordered and are pending. Since she has had difficulty hydrating I am also providing IV hydration with 1 L LR. Further evaluation and treatment will be based on response to these interventions and evaluation of her labs. Progress Note #2: Time: 07:07 Progress Note Nausea was relieved by Zofran. Patient requested treatment for pain. Fentanyl 50 mcg was given. She still has discomfort. Labs have been reviewed and interpreted by me in their entirety. CBC was notable for leukocytosis with WBC of 22. Chemistry was notable for a slight hypokalemia with potassium of 3.5. Glucose was elevated at 212. Patient denies any history of diabetes. Lipase was normal at 47. Remainder of chemistry was unremarkable. Serum test was negative. CRP was only 1.32. Urinalysis demonstrated mild hematuria with 10-25 RBC. Specific gravity was high. I discussed options with the patient. We can try a conservative approach with a trial of GI cocktail. I offered CT imaging as well due to the significant pain and leukocytosis. Patient would like to try GI cocktail first. This has been ordered. Progress Note #3: Time: 09:18 Progress Note Kasandra was still experiencing pain after GI cocktail. She did not note a significant improvement. I discussed further options which included conservative management of symptoms and careful observation at home, x-ray imaging of the chest and abdomen, or CT imaging. Risks and benefits of the different options were reviewed. Patient elected to proceed with x-ray imaging but not the CT scan. Chest x-ray and abdominal x-rays were both reviewed and i nterpreted by me. No acute abnormalities were appreciated on my interpretation. Specifically, there is no evidence of free air or bowel obstruction on the abdominal x-rays. There was no consolidation or infiltrate appreciated on the chest x-rays. I was concerned she may have a left lower lobe pneumonia based on her cough and recent treatment for respiratory illness. The exact cause of her abdominal pain was not determined in the ER. Viral illness was suspected. She could also have some GI irritation from Augmentin, but she has been on Augmentin since September 11 and symptoms just started yesterday. Her pain had been further treated with fentanyl after the GI cocktail and then Toradol prior to discharge. Levsin was also given for cramping. She did seem to have notable improvement after those therapies. We discussed her high blood pressure and hyperglycemia. Because she had high blood pressure in the clinic earlier this week and persistent significantly elevated blood pressure in the ER, treatment w as deemed appropriate. I provided her prescription for lisinopril with hydrochlorothiazide and instructions to follow-up promptly with her primary care provider. She was advised to receive further screening for diabetes as well. I reviewed her discharge instructions thoroughly with her in person. See discharge instructions for further discussion. Kasandra understands that she is to return to the ER according to the return precautions discussed. Diagnostic Imaging Diagonstic Imaging: Xray Plain Films/CT/US/NM/MRI: abdomen, pelvis Comments NAME: KASANDRA SCHREIBER [facility] REC#: [id number] PT STATUS: [facility] ER : 1980 PHYSICIAN: ENA ANDRADE MD ADMIT DATE: 09/20/23/ER Signed Date of Exam:09/20/23 ABDOMEN, FLAT & UPRIGHT/DECUB INDICATION: Upper abdominal pain and emesis. Supine and upright views of the abdomen are obtained. Overall bowel gas pattern is unremarkable with moderate amount of stool in the ascending colon. There is no free intraperitoneal gas or pneumatosis. Intrauterine device is seen in the central pelvis. No pathologic abdominal calcification is identified. Surgical clips are seen in the region of gallbladder fossa. IMPRESSION: No acute abnormality. Dictated by: Dictated on workstation # [id number] Dict: 09/20/23824 Trans: 09/20/23918 [facility] [phone] Interpreted by: YASMIN BANKS MD Electronically signed by: YASMIN BANKS MD 09/20/23918 Diagonstic Imaging: Xray Plain Films/CT/US/NM/MRI: chest Comments NAME: KASANDRA SCHREIBER [facility] REC#: [id number] PT STATUS: [facility] ER : 1980 PHYSICIAN: ENA ANDRADE MD ADMIT DATE: 09/20/23/ER Signed Date of Exam:09/20/23 CHEST PA/LAT (2 VIEW) CHEST PA/LAT (2 VIEW) INDICATION: Cough, LUQ pain. COMPARISON: None. FINDINGS: Lungs: Normal lung volume. No focal consolidation. Stable pulmonary vasculature. Pleura: No pleural effusion or pneumothorax. Heart and Mediastinum: Cardiomediastinal silhouette and great vessels of the thorax are stable. Osseous Structures and Soft Tissues: No acute osseous abnormality. Normal soft tissues. IMPRESSION: No acute cardiopulmonary process. Dictated by: Dictated on workstation # [id number] Dict: 09/20/23824 Trans: 09/20/23825 [facility] [place] [id number] Interpreted by: ELVIRA HALL DO Electronically signed by: ISABELELVIRA 09/20/23 0826 Departure Impression Primary Impression: Upper abdominal pain Additional Impressions: Nausea & vomiting Qualified Codes: R11.2 - Nausea with vomiting, unspecified Leukocytosis Qualified Codes: D72.829 - Elevated white blood cell count, unspecified Hypertension Qualified Codes: I10 - Essential (primary) hypertension Hyperglycemia Disposition: 01 HOME, SELF-CARE Condition: Stable Departure-Patient Inst. Decision time for Depature: 08:59 Referrals: DULCE XAVIER APRN (PCP/Family) Primary Care Physician Patient Instructions: Abdominal pain, High Blood Pressure ED, High Blood Sugar, Adult ED, Nausea and Vomiting, Adult (DC) Add. Discharge Instructions: 1. Nausea and vomiting Start with a noncarbonated clear liquid diet. Adhere to a clear liquid diet for most of today. Gradually advance your diet with small quantities of bland food as tolerated. Avoid dairy, fatty foods, or greasy foods for at least 48 hours after your symptoms resolve. Use Zofran (ondansetron) as prescribed for nausea or vomiting. 2. Abdominal pain The exact cause of your abdominal pain was not determined in the emergency room. It may be related to stomach and/or bowel irritation from a viral illness. You may safely take Tylenol (acetaminophen) up to 1000 mg every 6 hours as needed for pain. The Levsin (hyoscyamine) may be used as prescribed for bowel cramping or diarrhea. Using an antacid such as Pepcid (famotidine) 20 mg twice daily may also help with your upper abdominal pain during this acute illness. Tums or a generic equivalent use per package instructions may also be helpful. 3. Leukocytosis (elevated white blood cell count) You had an elevated white blood cell count of 22,000 today in the ER. This may be due to stress on your body from vomiting. However, you should follow-up with your primary care provider within the next 1 to 2 weeks to have your white blood cell count checked again to ensure it returns to normal. 4. High blood sugar Your blood sugar in the emergency room was 212. This could be caused by undiagnosed diabetes. Please discuss this with your primary care provider and to be further screened for diabetes. In the meantime, consume a diet low in sugars and carbohydrates. 5. High blood pressure Because your blood pressure was elevated in the clinic earlier this week and significantly elevated again in the ER, it is appropriate to start treating you for hypertension. A prescription for lisinopril with hydrochlorothiazide has been sent to the pharmacy. Start this medication and discuss further with your primary care provider. Please be seen within the next 2 weeks for a blood pressure check and renewal of blood pressure medication. 6. Return precautions Please return to the emergency room if your symptoms are not progressively improving by following these instructions or if you are developing worsening symptoms. Please also return if you develop new symptoms such as fever. All discharge instructions reviewed with patient and/or family. Voiced understanding. Scripts Lisinopril/Hydrochlorothiazide (Lisinopril-Hctz 10-12.5 mg Tab) 10 Mg-12.5 Mg Tablet 1 EACH PO DAILY, #30 TAB Prov: ENA ANDRADE MD 09/20/23 Hyoscyamine Sulfate (Levsin-Sl) 0.125 Mg Tab.subl 1-2 TAB SL Q4H PRN for CRAMPS, #10 TAB For bowel cramps or diarrhea Prov: ENA ANDRADE MD 09/20/23 Ondansetron (Ondansetron Odt) 4 Mg Tab.rapdis 4 MG SL Q4H PRN for NAUSEA/VOMITING, #10 TAB Prov: ENA ANDRADE MD 09/20/23 ENA ANDRADE MD Sep 20, 2023 06:33
[2023-09-20 06:34] LABS: ALBUMIN 4.3 GM/DL (3.2-4.5); POTASSIUM 3.5 MMOL/L (3.6-5.0)
[2023-09-20 06:36] LABS: CALCIUM 8.7 MG/DL (8.5-10.1)
[2023-09-20 06:37] LABS: TOTAL PROTEIN 7.7 GM/DL (6.4-8.2)
[2023-09-20 06:39] LABS: BILIRUBIN,TOTAL 0.9 MG/DL (0.1-1.0)
[2023-09-20 06:40] LABS: CREATININE SERUM 0.68 MG/DL (0.60-1.30)
[2023-09-20 06:43] LABS: MAGNESIUM 1.8 MG/DL (1.6-2.4)
[2023-09-20] MEDS ORDERED: fentaNYL INJECTION 100 MCG/2 ML VIAL IVP ONE ×2 (06:45→08:15)
[2023-09-20 06:52] LABS: LYMPHOCYTES % (MANUAL) 17 %; NEUTROPHILS % (MANUAL) 75 %
[2023-09-20 06:53] LABS: MONOCYTES % (MANUAL) 8 %; PLATELET ESTIMATE ADEQUATE; RBC MORPH NORMAL
[2023-09-20] MEDS ORDERED: ANTACID SUSPENSION 30 ML UDC PO ONE (07:15)
[2023-09-20] MEDS ORDERED: LIDOCAINE 2% VISCOUS 15 ML UDC PO ONE (07:15)
--- NOTE | 2023-09-20 08:27 | Diagnostic Imaging Report ---
CHEST PA/LAT (2 VIEW) INDICATION: Cough, LUQ pain. COMPARISON: None. FINDINGS: Lungs: Normal lung volume. No focal consolidation. Stable pulmonary vasculature. Pleura: No pleural effusion or pneumothorax. Heart and Mediastinum: Cardiomediastinal silhouette and great vessels of the thorax are stable. Osseous Structures and Soft Tissues: No acute osseous abnormality. Normal soft tissues. IMPRESSION: No acute cardiopulmonary process. Dictated by: Dictated on workstation # [id number]
--- NOTE | 2023-09-20 08:28 | Diagnostic Imaging Report ---
INDICATION: Upper abdominal pain and emesis. Supine and upright views of the abdomen are obtained. Overall bowel gas pattern is unremarkable with moderate amount of stool in the ascending colon. There is no free intraperitoneal gas or pneumatosis. Intrauterine device is seen in the central pelvis. No pathologic abdominal calcification is identified. Surgical clips are seen in the region of gallbladder fossa. IMPRESSION: No acute abnormality. Dictated by: Dictated on workstation # [id number]
[2023-09-20] MEDS ORDERED: KETOROLAC INJ 30 MG/ML VIAL IVP ONE (09:00)
[2023-09-20] MEDS ORDERED: HYOSCYAMINE 0.125 MG TABLET SL ONE (09:00)
[2023-09-20] MEDS ORDERED: HYOS0.1283 SL (09:08)
[2023-09-20] MEDS ORDERED: LISI1TAB44 PO (09:08)
[2023-09-20] MEDS ORDERED: ONDA4TAB11 SL (09:08)
[2023-09-20 09:19] VITALS: BP 171/114
== END 2023-09-20 09:19 | disposition home or self-care (01) ==
LOC: EDUNIT# 05:33 → ER 05:35
DX: I10 Essential (primary) hypertension (principal); D72.829 Elevated white blood cell count, unspecified; R73.9 Hyperglycemia, unspecified; R10.13 Epigastric pain; R10.12 Left upper quadrant pain; Z90.49 Acquired absence of other specified parts of digestive tract
CPT/HCPCS: 36415; 71046; 74019; 80053; 81000; 83690; 83735; 84703; 85007; 85027; 86141